=== PATIENT | female | born 1965 | race Caucasian/White ===

== ENCOUNTER → 2018-04-23 | Outpatient (REF) ==
[2018-04-23 16:50] LABS: THYROXINE (T4)-TOTAL 8.3 ug/dL (5.5-11.0)
[2018-04-23 17:04] LABS: THYROID STIMULATING HORMONE 1.9 uIU/mL (0.465-4.680)
== END ==
LOC: ZLAB.WCH 16:24
PROVIDERS: Family Medicine
DX: Z01.89 Encounter for other specified special examinations (principal)